=== PATIENT | male | born 1990 | race Asian ===

== ENCOUNTER 2017-02-22 17:23 | Emergency (ER) | payer SELFPAY ==
[~2017-02-22] VITALS: Ht 162.6 cm; Wt 90.9 kg
[2017-02-22 17:39] VITALS: BP 150/88; TEMP 99.4
[2017-02-22 19:33] LABS: COLLECTION METHOD CLEAN CATCH
[2017-02-22 19:39] LABS: PH 6 (5-8); SQUAMOUS EPITHELIAL 0-2 /hpf; URINE APPEARANCE Clear; URINE BACTERIA None Seen /hpf; URINE BILIRUBIN Negative (NEGATIVE); URINE BLOOD Negative (NEGATIVE); URINE COLOR Yellow; URINE GLUCOSE Negative (NEGATIVE); URINE KETONE Negative (NEGATIVE); URINE LEUKOCYTE ESTERASE Negative (NEGATIVE); URINE PROTEIN(semi-quant) Negative (NEGATIVE); URINE RBC 0-2 /hpf; URINE UROBILINOGEN >=4.0 mg/dL (NEGATIVE)
[2017-02-22] MEDS ORDERED: NORCO 325 MG-51 TAB PO (20:17)
[2017-02-22 20:29] VITALS: PULSE 73
[2017-02-22 20:29] LABS: CHLAMYDIA/TRACH by PCR Male DETECTED; Neisseria Gon by PCR Male NOT DETECTED
[2017-03-01] MEDS ORDERED: ZITHROMAX 250M250 MG PO (10:48)
== END 2017-02-22 20:29 | disposition home or self-care (01) ==
LOC: COL.ER 17:23
PROVIDERS: Nurse Practitioner
DX: N45.1 Epididymitis (principal); S39.94XA Unspecified injury of external genitals, initial encounter; W50.1XXA Accidental kick by another person, initial encounter

== ENCOUNTER 2019-11-05 17:00 | Emergency (ER) | payer SELFPAY ==
[~2019-11-05] VITALS: Ht 162.6 cm; Wt 75.7 kg
[~2019-11-05 17:00] MED LIST: NORCO 325 MG-51 TAB PO; ZITHROMAX 250M250 MG PO
[2019-11-05 17:02] VITALS: BP 126/87; TEMP 98.6
[2019-11-05 17:41] LABS: BASO # 0.1 (0.0-0.2); BASO % 1.3 % (0.0-2.0); EOS # 0.5 (0.0-0.7); EOS % 5.7 % (0-4.0); GRAN # 4.9 (1.4-6.5); GRAN % 59.3 % (42.2-75.2); HEMATOCRIT 45.7 % (42.0-52.0); LYMPH % 24.1 % (20.0-51.0); MEAN CELL VOLUME 84 fl (80.0-100.0); MEAN CORPUSCULAR HEMOGLOBIN 28 pg (27.0-31.0); MEAN CORPUSCULAR HGB CONC 33 g/dl (33.0-37.0); MEAN PLATELET VOLUME 8.7 fl (7.4-10.4); MONO # 0.8 (0.1-0.6); MONO % 9.2 % (1.7-9.3); PLATELET COUNT 283 K/mm3 (130-400); RED BLOOD COUNT 5.45 M/mm3 (4.20-5.60); REDCELL DISTRIBUTION WIDTH-CV 13.1 % (11.5-14.5)
[2019-11-05 17:53] LABS: ALBUMIN 4.4 gm/dL (3.5-5.0); BILIRUBIN,TOTAL 0.5 mg/dL (0.0-1.0); C-REACTIVE PROTEIN 1.7 mg/dL (0.0-0.9); CALCIUM 8.9 mg/dL (8.4-10.2); CREATININE, serum 0.73 (0.66-1.25); POTASSIUM 4.1 mmol/L (3.4-5.0)
[2019-11-05] MEDS ORDERED: PRILOSEC 20MG20 MG PO (18:15)
[2019-11-05] MEDS ORDERED: CARAFATE 1GM1 G PO (18:15)
[2019-11-05 18:44] VITALS: PULSE 65
== END 2019-11-05 18:45 | disposition home or self-care (01) ==
LOC: COL.ER 17:00
PROVIDERS: Nurse Practitioner
DX: R10.13 Epigastric pain (principal)